=== PATIENT | female | born 1970 | race Caucasian/White ===

== ENCOUNTER 2021-09-22 22:34 | Observation (INO) ==
[2021-09-22] MEDS ORDERED: LABETALOL HCL IV 5 MG/ML 20ML IV PRN (22:54)
--- NOTE | 2021-09-22 23:01 | Emergency Department Note ---
History of Present Illness General Chief complaint: Weakness Stated complaint: Weakness Time Seen by Provider: 09/22/21 22:39 History of Present Illness Maximum Pain Intensity: 6 51-year-old female presents to the ED with a chief complaint of right hand weakness. The patient states that she went to blow her nose this evening around 8 PM and noticed that her right hand became tingly and she had trouble using it. She states that she felt like she could not completely control it. She tried fixing her hair short time later and had difficulty with that at as well. She continues having the symptoms in the ED but it seems to have improved slightly. The patient also incidentally reports that she has had some right lateral leg pain just above the ankle for about a week. She is not sure if it is related to her symptoms tonight. She states that she saw her doctor earlier in the week and had some blood test for gout as well as some x-rays but nothing was found. She is a smoker. She reports history of anxiety but does not take medication for either. Home Medications Medication Instructions Recorded Confirmed Type prednisone 0 mg PO UD 09/22/21 09/22/21 History Allergies Allergy/AdvReac Type Severity Reaction Status Date / Time Penicillins Allergy Severe Rash Verified 09/22/21 23:01 acetaminophen Allergy Intermediate Rash Verified 09/22/21 23:01 [From Darvocet-N 100] propoxyphene Allergy Intermediate Rash Verified 09/22/21 23:01 [From Darvocet-N 100] Past Med/Surg History Medical History (Updated 09/22/21 @ 23:55 by Hua Munoz DO) Anxiety Hypertension Social History Smoking Status: Current every day smoker Tobacco Type: Cigarettes Feels Safe at Home: Yes Review of Systems A total of 10 systems reviewed and were otherwise negative Physical Exam Vital Signs Vital Signs - 24 hr 09/22/21 22:40 09/22/21 23:20 Temperature 36.9 C Temperature Source Oral Pulse Rate 98 H Pulse Rate [Finger] 98 H 77 Respiratory Rate 12 18 Respiratory Effort / Characteristics Non-Labored Respiratory Depth Normal Normal Blood Pressure 183/99 H Blood Pressure [Left Arm] 183/99 H 156/120 H Blood Pressure Mean 127 Blood Pressure Mean [Left Arm] 127 132 Pulse Oximetry 96 98 Oxygen Delivery Method Room Air Room Air Sepsis Recent Fever Within 48 Hours No Sepsis New/Unexplained Change in Mental Status N/A Sepsis Action Taken by Nursing No Action Required CONSTITUTIONAL/VITAL SIGNS: Reviewed / noted above. GENERAL: Non-toxic in appearance. INTEGUMENTARY: Warm, dry, and [place]. HEAD: Normocephalic. EYES: without scleral icterus or trauma. ENT/OROPHARYNX: clear and moist. LYMPHADENOPATHY/NECK: Is supple without lymphadenopathy or meningismus. RESPIRATORY: Clear to auscultation bilaterally. No increased work of breathing. CARDIOVASCULAR: Regular rate and rhythm. GI/ABDOMEN: Soft and nontender. No organomegaly or pulsatile mass. EXTREMITIES: Warm and well perfused. The patient is right-handed but has weak right hand retort condenser attendant strength. BACK: No CVA tenderness. NEUROLOGICAL: Intact without focal deficits. PSYCHIATRIC: normal affect. MUSCULOSKELETAL: Normally developed with good muscle tone. TRIAGE NURSING DOCUMENTATION REVIEWED. Course Administered Medications Discontinued Medications Aspirin (Aspirin Chew 324 Mg) Confirm Administered Dose 324 mg .ROUTE .[employer] ONE Stop: 09/22/21 23:37 Last Admin: 09/22/21 23:38 Dose: 324 mg Documented by: [id number] Ioversol (Optiray 320 125ml) 121 ml IV ONCE ONE Stop: 09/22/21 23:16 Last Admin: 09/22/21 23:15 Dose: 1 ml Documented by: [id number] Medical Decision Making Differential Diagnosis Differential includes acute coronary syndrome, myocardial infarction, CVA, TIA, anemia, infection, pneumonia, UTI, pyelonephritis, poor nutrition, dehydration, electrolyte disturbance,hypoglycemia. Medical Records Attestation: I reviewed the patient's medical records. Home Medications Current Medication List: was personally reviewed by me Laboratory Data Attestation: I reviewed the patient's lab results. Result diagrams: 09/22/21 22:58 09/22/21 22:58 Lab Results 09/22/21 09/22/21 Range/Units 22:58 22:58 WBC 8.47 (4.8-10.8) K/uL RBC 4.13 L (4.2-5.4) M/uL Hgb 13.9 (12.0-16.0) g/dL Hct 41.1 (37-47) % MCV 99.5 (80-100) fL MCH 33.7 (25-34) pg MCHC 33.8 (32-36) g/dL RDW Std Deviation 46.9 H (36.4-46.3) fL RDW Coeff of Doris 13.0 (11.5-14.5) % Plt Count 374 (130-400) K/uL MPV 8.6 (7.4-10.4) fL Immature Gran % (Auto) 0.6 % Neut % (Auto) 70.7 % Lymph % (Auto) 23.8 % Turner % (Auto) 4.8 % Eos % (Auto) 0.0 % Baso % (Auto) 0.1 % Neut # (Auto) 5.98 (1.4-6.5) K/uL Lymph # (Auto) 2.02 (1.2-3.4) K/uL Turner # (Auto) 0.41 (0.11-0.59) K/uL Eos # (Auto) 0.00 (0-0.5) K/uL Baso # (Auto) 0.01 (0-0.2) K/uL Immature Gran # (Auto) 0.05 H (0.00-0.02) K/uL Sodium 144 (136-145) mmol/L Potassium 3.3 L (3.5-5.1) mmol/L Chloride 105 (98-107) mmol/L Carbon Dioxide 29 (21-32) mmol/L Anion Gap 10 (3-11) BUN 17 (6-23) mg/dl Creatinine 0.64 (0.6-1.2) mg/dl Est Cr Clr Drug Dosing 71.1 ml/min Est GFR ( Amer) 118.1 ml/min Est GFR (Non-Af Amer) 101.9 ml/min BUN/Creatinine Ratio 26.6 H (10-20) Glucose 108 H (70-99(Fasting)) mg/dl Calcium 9.3 (8.5-10.1) mg/dl Magnesium 1.9 (1.7-2.4) mg/dl Total Bilirubin 0.2 (0.2-1.0) mg/dl AST 36 (13-39) U/L ALT 49 (7-52) U/L Alkaline Phosphatase 127 H (34-104) U/L Troponin I < 0.03 (0-0.04) ng/ml Total Protein 8.0 (6.0-8.3) gm/dl Albumin 4.6 (3.4-5.0) gm/dl Globulin 3.4 (2.5-4.0) gm/dl Albumin/Globulin Ratio 1.4 (0.9-2) Imaging Data My Impression: Chest x-ray: Per my interpretation is negative for acute disease. No pneumothorax or pneumonia. Radiologist's Impression: CT scan of the head without contrast: No acute bleed or mass CT scan angiogram of the head and neck: No LVO ECG Data Attestation: I personally reviewed and interpreted this ECG as follows: Additional Comments: Twelve-lead EKG: Per my interpretation shows a normal sinus rhythm at a rate of 75. No ST elevation. No PVCs. Normal QTC. MDM Narrative 51-year-old female presents with a chief complaint of right hand weakness that started about 8 PM tonight. She states that it started somewhat suddenly when she was blowing her nose. She reported weakness and numbness and lack of adequate control. She is right-handed. On my exam the patient has right hand retort condenser attendant strength weakness compared to the left. No pronator drift. No other focal neurologic findings. The patient's EKG shows a normal sinus rhythm. CBC and chemistry panel was unremarkable. Troponin is negative. Chest x-ray was negative for acute disease. CT scan of the brain did not show acute bleed. CT angiogram of the head neck did not show LVO. The patient was a stroke alert. She was evaluated by Dr. Pro from [facility]. She recommended aspirin and further evaluation as an inpatient with MRI and other appropriate studies. Impression & Plan Acute CVA (cerebrovascular accident) Discharge Plan Visit Data Chief Complaint: Weakness Stated Complaint: Weakness ED Provider: Hua Munoz Discharge Problem: Acute CVA (cerebrovascular accident) Patient Disposition: Being Evaluated by Hospitalist Forms Stand Alone Forms: [employer] Prescriptions Prescriptions: No Action prednisone 0 mg PO UD RF: 0 Referrals Referrals: PCP,NO [Physician] -
[2021-09-22 23:09] LABS: Basophils # (auto) 0.01 K/uL (0-0.2); Basophils % (auto) 0.1 %; Hematocrit (blood only) 41.1 % (37-47); Hemoglobin 13.9 g/dL (12.0-16.0); Immature Granulocytes # (auto) 0.05 K/uL (0.00-0.02); Immature Granulocytes % (auto) 0.6 %; Lymphocytes # (auto) 2.02 K/uL (1.2-3.4); Lymphocytes % (auto) 23.8 %; Mean Corpuscular Hemoglobin 33.7 pg (25-34); Mean Corpuscular Hgb Conc 33.8 g/dL (32-36); Mean Corpuscular Volume 99.5 fL (80-100); Mean Platelet Volume 8.6 fL (7.4-10.4); Monocytes # (auto) 0.41 K/uL (0.11-0.59); Monocytes % (auto) 4.8 %; Neutrophils # (auto) 5.98 K/uL (1.4-6.5); Neutrophils % (auto) 70.7 %; Platelet Count 374 K/uL (130-400); RDW Standard Deviation 46.9 fL (36.4-46.3); Red Blood Count 4.13 M/uL (4.2-5.4); White Blood Count 8.47 K/uL (4.8-10.8)
[2021-09-22] MEDS ORDERED: OPTIRAY 320 125ml IV ONE (23:15)
[2021-09-22 23:30] LABS: Troponin I < 0.03 ng/ml (0-0.04)
[2021-09-22 23:33] LABS: Alanine Aminotransferase 49 U/L (7-52); Albumin Globulin Ratio 1.4 (0.9-2); Albumin Level 4.6 gm/dl (3.4-5.0); Alkaline Phosphatase 127 U/L (34-104); Anion Gap 10 (3-11); Aspartate Aminotransferase 36 U/L (13-39); BUN Creatinine Ratio 26.6 (10-20); Bilirubin,Total 0.2 mg/dl (0.2-1.0); Blood Urea Nitrogen 17 mg/dl (6-23); Calcium 9.3 mg/dl (8.5-10.1); Carbon Dioxide 29 mmol/L (21-32); Chloride 105 mmol/L (98-107); Creatinine Clr Calc Pharmacy 71.1 ml/min; Est GFR (African American) 118.1 ml/min; Est GFR (Non-African American) 101.9 ml/min; Globulin 3.4 gm/dl (2.5-4.0); Glucose 108 mg/dl (70-99(Fasting)); Magnesium 1.9 mg/dl (1.7-2.4); Potassium 3.3 mmol/L (3.5-5.1); Sodium 144 mmol/L (136-145)
[2021-09-22] MEDS ORDERED: ASPIRIN CHEW 324 MG ONE (23:36)
[2021-09-22] MEDS ORDERED: ASPIRIN CHEW 324 MG PO STA (23:41)
[2021-09-22 23:46] LABS: INR 1.4 (0.9-1.1); Partial Thromboplastin Ratio > 5.3; Prothrombin Time 13.5 Seconds (9.0-12.0)
[2021-09-23 00:07] LABS: Partial Thromboplastin Time > 139.0 Seconds (21.0-31.0)
[2021-09-23] MEDS ORDERED: LORazepam 1 MG/2 ML VIAL IV STA (00:29)
[2021-09-23] MEDS ORDERED: SODIUM CHLORIDE 0.9% 1000ML 1,000 ML IV SCH (02:09)
[2021-09-23] MEDS ORDERED: PHARMACIST DISCHARGE MED REC CONSULT PRN (02:09)
[2021-09-23] MEDS ORDERED: LABETALOL HCL IV 5 MG/ML 20ML IV PRN (02:09)
[2021-09-23] MEDS ORDERED: NITROGLYCERIN SL 0.4 MG/TAB TAB SL PRN (02:09)
--- NOTE | 2021-09-23 02:46 | History and Physical Report ---
DATE OF ADMISSION: 09/23/2021. CHIEF COMPLAINT: Right upper extremity weakness. HISTORY OF PRESENT ILLNESS: This is a 51-year-old female with past medical history significant for prediabetes, hyperlipidemia, hypertension, GERD, ongoing tobacco abuse, smokes half pack to one pack a day, currently not taking any medications, presents with right upper extremity weakness. The patient is also recently having right lower extremity pain in the ankle region for the last 1 week and she saw doctor and was prescribed prednisone, but that is not helping her. Today around 8:00 p.m., she noticed some tingliness and funny feeling in the right hand and she was trying to comb her hair and she was not able to comb, and came to the ER. Currently, she feels still the same, but currently she was able to hold the phone, but she still feels something not right.She was stroke alert. Initial workup was negative and [facility] recommended aspirin and further workup with MRI scan. The blood pressure was running high and she received labetalol. Currently, resting comfortably and hemodynamically stable. Denies any headache, no dizziness, no blurred visions, no earache, no runny nose, no sore throat, no cough, no difficulty swallowing. No chest pain, no shortness of breath, no nausea, no vomiting, no abdominal pain. Normal bowel and bladder movements. Ambulates fine except for recently because of the right lower extremity pain, she is not ambulating much. Hemodynamically stable. ALLERGIES: PENICILLIN AND DARVOCET. PAST MEDICAL HISTORY: As mentioned above. PAST SURGICAL HISTORY: , colonoscopy, endometrial cryoablation, excision of breast lesion, tonsillectomy. MEDICATIONS: Currently taking prednisone. FAMILY HISTORY: Significant for maternal aunt has breast cancer, paternal aunt has breast cancer, maternal cousin has ovarian cancer. SOCIAL HISTORY: . Smokes half pack to 1 pack a day for last 22 years. Alcohol socially. No drug use. REVIEW OF SYSTEMS: As per HPI. Rest of the review of systems is negative. PHYSICAL EXAMINATION: GENERAL: The patient is of moderate build, not in acute distress. VITAL SIGNS: Temperature 36.9, pulse 77, respiratory rate 18, blood pressure when she came in was like 183/99, currently 166/120, oxygen 99% on room air. HEENT: Pupils equal, round and reactive to light. Oral mucosa moist. NECK: No JVD, no neck masses. CARDIOVASCULAR: S1 and S2 heard. Regular rate and rhythm. No murmur, no gallop. RESPIRATORY SYSTEM: Normal AP diameter. No accessory muscle use. No wheezing, no crackles. ABDOMEN: Soft, bowel sounds present, nontender, no distention. CENTRAL NERVOUS SYSTEM: Alert and oriented. Speech is clear. No facial droop. Power is 4/5 in right upper extremity, 5/5 in other extremities. No pronator drift. Sensation is intact. Position sense intact. EXTREMITIES: No edema, no erythema. LABORATORY DATA: WBC 8.4, hemoglobin 13.9, hematocrit 41.1, platelets 374. PT 13.5, INR 1.4, APTT greater than 139. Sodium 144, potassium 3.3, chloride 105, bicarb 29, BUN 17, creatinine 0.64, serum glucose 108, calcium 9.3, magnesium 1.9, total bilirubin 0.2, AST 36, ALT 40, alkaline phosphatase 127. Troponin I less than 0.03. SARS-CoV-2 RNA negative. IMAGING DATA: CT of the neck, no significant stenosis seen. CT of the head, no significant stenosis. CT of the head, in the preliminary report, no acute findings. Chest x-ray, no acute findings. EKG: Normal sinus rhythm with a rate of 75, no acute ST changes seen. ASSESSMENT AND PLAN: This is a 51-year-old female presents with stroke-like symptoms. 1. Stroke-like symptoms: Right upper extremity, started at 8:00 p.m. Still does not feel back to normal. Initial workup is negative. Stroke alert was called. Recommend aspirin and further workup with MRI scan, which is pending. Will also get echocardiogram. Continue aspirin and start on statin. Follow lipid profile. HbA1c levels as per protocol, echo as per protocol, and closely monitor in the tele floor. Neuro consult in a.m. PT/OT. Speech evaluation. 2. Hypertension, hypertensive urgency: Will allow permissive hypertension for now. The patient has history of hypertension, but not taking medications which might be contributing to her symptoms. on IV labetalol p.r.n. May Needs prescription for blood pressure medication at discharge. 3. History of hyperlipidemia: Not taking any medications. Follow the lipid profile. 4. History of prediabetes: Follow HbA1c levels. 5. Tobacco abuse: Needs counseling. 6. Elevated APTT and INR: Etiology unclear. Needs followup. 7. Deep venous thrombosis prophylaxis: Sequential compression devices for now. DISPOSITION: Closely monitor in the tele floor. Level 1 full code. Expect to discharge home and follow with family doctor. Job ID: [id number] T[facility]IL HOSPITALJyoti
[2021-09-23 05:48] LABS: Basophils # (auto) 0.03 K/uL (0-0.2); Basophils % (auto) 0.3 %; Eosinophils # (auto) 0.03 K/uL (0-0.5); Eosinophils % (auto) 0.3 %; Hematocrit (blood only) 35.5 % (37-47); Hemoglobin 11.8 g/dL (12.0-16.0); Immature Granulocytes # (auto) 0.04 K/uL (0.00-0.02); Immature Granulocytes % (auto) 0.4 %; Lymphocytes # (auto) 4.34 K/uL (1.2-3.4); Lymphocytes % (auto) 46.6 %; Mean Corpuscular Hemoglobin 32.9 pg (25-34); Mean Corpuscular Hgb Conc 33.2 g/dL (32-36); Mean Corpuscular Volume 98.9 fL (80-100); Mean Platelet Volume 8.4 fL (7.4-10.4); Monocytes # (auto) 0.54 K/uL (0.11-0.59); Monocytes % (auto) 5.8 %; Neutrophils # (auto) 4.34 K/uL (1.4-6.5); Neutrophils % (auto) 46.6 %; Platelet Count 298 K/uL (130-400); Red Blood Count 3.59 M/uL (4.2-5.4); White Blood Count 9.32 K/uL (4.8-10.8)
[2021-09-23 06:29] LABS: Calcium 8.4 mg/dl (8.5-10.1); Chol HDL Ratio 2.3 (0-5); Est GFR (African American) 128.1 ml/min; Est GFR (Non-African American) 110.5 ml/min; Potassium 3.3 mmol/L (3.5-5.1)
--- NOTE | 2021-09-23 07:02 | Magnetic Resonance Report ---
MR brain wo con HISTORY: 51 years-old Female cva acute strokelike symptoms. History of hypertension. COMPARISON: Head CT, CTA head and neck of same day TECHNIQUE: Multiplanar multisequence MRI of the brain was obtained without the use of IV contrast. FINDINGS: Mines Safety Engineer localizer images demonstrate no gross extracranial abnormality. There is no restricted diffusio n to suggest acute or subacute infarct. Midline structures appear unremarkable. The study is mildly m otion degraded. Partially empty sella. No pathologic blooming artifact on the T2 star series. There i s no acute intracranial hemorrhage, midline shift, abnormal extra-axial collection, hydrocephalus or intracranial mass. Moderate T2/FLAIR hyperintense foci are noted throughout the white matter within t he subcortical, deep and periventricular distributions. The cerebral venous sinuses and major arterial flow voids appear patent. Mastoid air cells and parana pete sinuses are generally clear. Leftward bowing and spurring the nasal septum with bilateral lovely bullosa. The skull, orbits and soft tissues are within normal limits. IMPRESSION: 1. No acute intracranial abnormality. No acute or subacute infarct. 2. Moderate T2/FLAIR hyperintense foci are noted throughout the white matter. These findings are nons pecific, however would favor chronic microvascular ischemic disease. Demyelinating process among othe r etiologies considered less likely. ACT 112: Negative or not required by law. The above report was generated using voice recognition software. It may contain grammatical, syntax o r spelling errors. Electronically signed by: Jason Lorenzo M.D. 09/23/2021 7:01 AM
--- NOTE | 2021-09-23 07:08 | CT Scan Report ---
CT head/brain wo con, CT angio neck with con, CT angio head w con CLINICAL HISTORY: 51 years-old Female with Stroke Like Symptoms. Acute strokelike symptoms TECHNIQUE: Multiple axial CT images of the head were obtained without contrast. CTA head and neck was also obtained following the intravenous ministration of Optiray. 3-D coronal and sagittal MIPS were obtained from the axial data set and were submitted for review. All measurements were obtained accord ing to NASCET criteria. A dose lowering technique was utilized adhering to the principles of ALARA. COMPARISON: Brain MRI of same day FINDINGS: CT HEAD: No acute intracranial hemorrhage, midline shift, intracranial mass, hydrocephalus, territorial ischem ia or abnormal extra-axial collection. Patchy white matter hypodensities. The calvarium is intact. The paranasal sinuses, mastoid air cells, and middle ear cavities are clear . CTA HEAD AND NECK: Mild atherosclerosis of the thoracic aortic arch. There is patency of the innominate and imaged subcl anh arteries. The common and internal carotid arteries are widely patent. The middle and anterior c erebral arteries are patent. The vertebral arteries are codominant and widely patent. Mild narrowing of less than 50% involves the V2 segment left vertebral artery at the level of C5-C6 secondary to unc overtebral spurring. The basilar and posterior cerebral arteries are patent. The cerebral venous sinu ses are patent. There is no abnormal intracranial enhancement. No pneumothorax. Unremarkable soft tissues of the neck. The left vocal fold is located in the medial position. Degenerative changes of the cervical spine. IMPRESSION: 1. No acute intracranial abnormality. 2. Patchy white matter hypodensities are nonspecific however suggest chronic microvascular ischemic d isease. 3. Unremarkable CTA of the head and neck. ACT 112: Negative or not required by law. The above report was generated using voice recognition software. It may contain grammatical, syntax o r spelling errors. Electronically signed by: Jason Lorenzo M.D. 09/23/2021 7:07 AM
--- NOTE | 2021-09-23 07:13 | XRay Report ---
SINGLE VIEW CHEST CLINICAL HISTORY: Strokelike symptoms FINDINGS: An AP, portable, upright chest radiograph is obtained. No prior studies are available for c omparison at the time of dictation. The cardiomediastinal silhouette is unremarkable noting atherosc lerotic calcification of the thoracic aorta. Emphysematous change is suspected. There is no airspace consolidation or large pleural effusion. Scarring/atelectasis is noted at the lung bases. No pneumoth orax is seen. The bony thorax is grossly intact. IMPRESSION: No acute cardiopulmonary abnormality. ACT 112: Negative or not required by law. Electronically signed by: Win Chavez M.D. 09/23/2021 7:12 AM
[2021-09-23] MEDS ORDERED: POTASSIUM CHLORIDE CRTAB 20 MEQ TABCR PO STA (07:22)
[2021-09-23 07:26] LABS: Estimated Average Glucose 131 mg/dl; Hemoglobin A1C 6.2 % (4.5-5.6)
[2021-09-23] MEDS ORDERED: amLODIPine BESYLATE 5 MG TAB PO SCH (09:00)
[2021-09-23] MEDS ORDERED: ATORVASTATIN 40 MG TAB PO SCH (09:00)
[2021-09-23] MEDS ORDERED: ASPIRIN 81 MG ECTAB PO SCH (09:00)
--- NOTE | 2021-09-23 09:42 | Communication Note ---
Date of Service: September 23, 2021 Patient with history of HTN, HLD, depression, here with right wrist numbness and right leg pain. Patient non compliant with her blood pressure medications. Home medication list as follows: Evista 60mg daily Ativan 0.5mg PRN Omeprazole 20mg daily Paxil 20mg daily Lipitor 20mg daily Toprol XL 25mg daily Buspar 10mg BID Losartan 50mg daily HCTZ 12.5mg daily On exam, right wrist numbness most likely carpal tunnel. Right leg pain x 1 week-- reportedly had outpatient ankle X ray which was negative. Will order RLE ultrasound to evaluate for DVT. Neurology Consult pending Likely discharge home later today
[2021-09-23] MEDS ORDERED: LOSARTAN POTASSIUM 50 MG TAB PO SCH (09:45)
--- NOTE | 2021-09-23 11:24 | Ultrasound Report ---
US venous doppler LE RT HISTORY: 51 years-old Female right leg pain, swelling. Evaluate for DVT acute pain and swelling of the right lower leg COMPARISON: None TECHNIQUE: Multiple real-time sonographic images of the right lower extremity deep venous structures were obtained assessing grayscale appearance, color and spectral flow. FINDINGS: Normal flow, compressibility, phasicity and augmentation. IMPRESSION: No sonographic evidence of deep venous thrombosis. ACT 112: Negative or not required by law. The above report was generated using voice recognition software. It may contain grammatical, syntax o r spelling errors. Electronically signed by: Jason Lorenzo M.D. 09/23/2021 11:23 AM
--- NOTE | 2021-09-23 14:05 | Electrocardiogram Report ---
Test Reason : Blood Pressure : / mmHG Vent. Rate : 075 BPM Atrial Rate : 075 BPM P-R Int : 142 ms QRS Dur : 080 ms QT Int : 404 ms P-R-T Axes : 065 042 049 degrees QTc Int : 451 ms Normal sinus rhythm Normal ECG No previous ECGs available Confirmed by Khanh Rousseau ([id number]) on 09/23/2021 2:04:53 PM Referred By: REFERRED SELF Confirmed By:Khanh Rousseau
--- NOTE | 2021-09-23 14:49 | Neurology Consultation ---
Date of Consultation September 23, 2021 Assessment & Plan (1) TIA (transient ischemic attack): 1. MRI brain- no stroke 2. CTA head neck - acute findings 3. aspirin 81 mg daily and plavix 75 mg daily x 21 days then aspirin 81 mg alone for life 4. optimize HTN, HLD, DM LDL <70 5. PT/OT for discharge needs 6. EMG 40 minute RUE as outpatient - has been ordered 7. ZIO as outpatient follow with Neurology 4-6 weeks Daisy Reynolds PAC schedule (2) Non compliance w medication regimen: Supervising Physician Co-Signing Physician Notes I have seen and discussed above patient with Dr Daisy Stock, neurology. pt seen and examined. had sudden r arm weakness, paresthesias after awakening from short nap. pt denies sleeping on the extremity. sx lasted 2 hours. no CN sx, headache or RLE sx other than r ankle pain of several weeks duration. MRI reviewed exam notable for nml CN, weakness in r ext wrist, finger ext, BR with full triceps, no drift dec DARIEL sec to weakness. Symm LE strength, symm reflexes, no ue sensory loss. No tenderness or deformity r upper arm Imp: pt appears to have weakness in r radial distribution . and mri brain nml. rec tx as ischemic event due to pt vascular risk factors, but also perform a ncv in 2 weeks. Query etiology of r ankle pain, rec further chester . VITO Stock MD History of Present Illness Reason for Consultation: right upper extremity weakness Requesting Physician: Matthew Ortiz MD Attending Physician: Matthew Ortiz MD History of Present Illness Josi is a 51 year old female with PMH- prediabetes, HLD, HTN, GERD, ongoing tobacco abuse, smokes half pack to one pack a day, currently not taking any medications, presents with right upper extremity weakness.She also recently having pain in the right lower extremity in the ankle region for the last 1 week and she saw doctor and was prescribed prednisone, but that is not helping her. She noticed some tingling and funny feeling in the right hand and she was trying to comb her hair and she was not able to comb, and presented to [facility] ED 09/23/21 She is now able to hold the phone, but she still feels something not right.She was stroke alert. Initial workup was negative and [facility] recommended aspirin and further workup with MRI scan. The blood pressure was running high and she received labetalol. the symptoms of weakness have resolve but she still has some numbness in her arm. Her ankle is bothering her more at this point it is painful to walk. deneis CP, SOB, abdominal pain, falls or injury to head or neck. Allergies Allergy/AdvReac Type Severity Reaction Status Date / Time Penicillins Allergy Severe Rash Verified 09/22/21 23:01 acetaminophen Allergy Intermediate Rash Verified 09/22/21 23:01 [From Darvocet-N 100] propoxyphene Allergy Intermediate Rash Verified 09/22/21 23:01 [From Darvocet-N 100] Home Medications Medication Instructions Recorded Confirmed Type aspirin 81 mg tablet,delayed 30 mg PO QAM #30 tab 09/23/21 Rx release atorvastatin 40 mg tablet 40 mg PO QAM #30 tab 09/23/21 Rx hydrochlorothiazide 12.5 mg capsule 12.5 mg PO DAILY #30 cap 09/23/21 Rx losartan 50 mg tablet 50 mg PO QAM #30 tab 09/23/21 Rx Patient History Medical History (Updated 09/23/21 @ 16:15 by Daisy Reynolds PA-C) Anxiety Hypertension Social History Smoking Status: Current every day smoker Tobacco Type: Cigarettes Tobacco Cessation Education Requested by Patient: No Hx Alcohol Use: No Hx Substance Use: No Communication Ability: Effective Beliefs That Will Affect Care: None Current Living Situation: Spouse Feels Safe at Home: Yes Safety Concerns: Feels Safe At This Time Assistive Devices: None Review of Systems Review of Systems: All systems reviewed & are unremarkable except as noted in HPI & below Physical Exam Physical Exam: Physical Exam: Constitutional: appearance nourished, healthy and normal Ears, Nose, Mouth and Throat: mucous membranes moist, no injection and skin normal, eyes normal Cardiovascular: normal S-1 and S-2 and regular rate and rhythm Respiratory: clear to auscultation (CTA) and no rales, ronchi or wheeze Musculoskeletal: no peripheral edema and good distal pulses Skin: no stigmata of neurocutaneous disease noted and normal and intact Eyes: extraocular muscles intact (EOMI) and pupils equal, round and reactive to light (PERRL) NEUROLOGIC EXAMINATION: Mental status: Alert and interactive Oriented to full date and location Oriented to person Speech fluent with no evidence of aphasia Cranial Nerves smile eye brow raise symmetric Reflexes: Deep tendon reflexes were symmetrical and graded 2/5. Sensory: intact to light cool touch Coordination: finger to nose , heel to lomax Gait/Stance: Posture sitting up in bed Motor: Negative for pronator drift of out stretched arms with eyes closed. Strength: biceps triceps hand school principal 5/5 bilaterally intrinsics right hand 4/5, hip flex plantar flex ext 5/5 Results & Data ([facility]) Vital Signs (Past 12 Hours) Vital Signs Temp Pulse Resp BP Pulse Ox 09/23/21 12:00 36.9 C 67 18 169/100 H 98 09/23/21 08:00 36.8 C 72 18 155/80 H 95 Laboratory Results Abnormal lab results 09/22/21 09/22/21 09/22/21 Range/Units 22:58 22:58 22:58 RBC 4.13 L (4.2-5.4) M/uL Hgb (12.0-16.0) g/dL Hct (37-47) % RDW Std Deviation 46.9 H (36.4-46.3) fL Lymph # (Auto) (1.2-3.4) K/uL Immature Gran # (Auto) 0.05 H (0.00-0.02) K/uL PT 13.5 H (9.0-12.0) Seconds INR 1.4 H (0.9-1.1) APTT > 139.0 H* (21.0-31.0) Seconds Potassium 3.3 L (3.5-5.1) mmol/L Creatinine (0.6-1.2) mg/dl BUN/Creatinine Ratio 26.6 H (10-20) Glucose 108 H (70-99(Fasting)) mg/dl Hemoglobin A1c (4.5-5.6) % Calcium (8.5-10.1) mg/dl Alkaline Phosphatase 127 H (34-104) U/L 09/23/21 09/23/21 09/23/21 Range/Units 05:27 05:27 05:27 RBC 3.59 L (4.2-5.4) M/uL Hgb 11.8 L (12.0-16.0) g/dL Hct 35.5 L (37-47) % RDW Std Deviation 47.0 H (36.4-46.3) fL Lymph # (Auto) 4.34 H (1.2-3.4) K/uL Immature Gran # (Auto) 0.04 H (0.00-0.02) K/uL PT (9.0-12.0) Seconds INR (0.9-1.1) APTT (21.0-31.0) Seconds Potassium 3.3 L (3.5-5.1) mmol/L Creatinine 0.50 L (0.6-1.2) mg/dl BUN/Creatinine Ratio 34.0 H (10-20) Glucose (70-99(Fasting)) mg/dl Hemoglobin A1c 6.2 H (4.5-5.6) % Calcium 8.4 L (8.5-10.1) mg/dl Alkaline Phosphatase (34-104) U/L Diagnostic Findings CT head -No acute intracranial abnormality. Patchy white matter hypodensities are nonspecific however suggest chronic microvascular ischemic disease. Unremarkable CTA of the head and neck. MRI brain-No acute intracranial abnormality. No acute or subacute infarct. Moderate T2/FLAIR hyperintense foci are noted throughout the white matter. These findings are nonspecific, however would favor chronic microvascular ischemic di sease. Demyelinating process among other etiologies considered less likely. LE doppler-No sonographic evidence of deep venous thrombosis. TTE- EF 55-60% no ASD
[2021-09-23] MEDS ORDERED: STROKE PATIENT DISCHARGE STA (16:39)
--- NOTE | 2021-09-23 16:44 | Discharge Summary ---
Date of Service September 23, 2021 Admission HPI Per Admitting Provider This is a 51-year-old female with past medical history significant for prediabetes, hyperlipidemia, hypertension, GERD, ongoing tobacco abuse, smokes half pack to one pack a day, currently not taking any medications, presents with right upper extremity weakness. The patient is also recently having right lower extremity pain in the ankle region for the last 1 week and she saw doctor and was prescribed prednisone, but that is not helping her. Today around 8:00 p.m., she noticed some tingliness and funny feeling in the right hand and she was trying to comb her hair and she was not able to comb, and came to the ER. Currently, she feels still the same, but currently she was able to hold the phone, but she still feels something not right.She was stroke alert. Initial workup was negative and [facility] recommended aspirin and further workup with MRI scan. The blood pressure was running high and she received labetalol. Currently, resting comfortably and hemodynamically stable. Denies any headache, no dizziness, no blurred visions, no earache, no runny nose, no sore throat, no cough, no difficulty swallowing. No chest pain, no shortness of breath, no nausea, no vomiting, no abdominal pain. Normal bowel and bladder movements. Ambulates fine except for recently because of the right lower extremity pain, she is not ambulating much. Hemodynamically stable. Principal Diagnosis Right hand numbness Right ankle pain Poorly controlled HTN Medication non compliance Discharge Exam Patient appears stated age. No acute distress. Breathing comfortably on room air. Heart sounds are normal. Right ankle with no swelling or deformities but tender to the touch. Discharge Data Allergies Allergy/AdvReac Type Severity Reaction Status Date / Time Penicillins Allergy Severe Rash Verified 09/22/21 23:01 acetaminophen Allergy Intermediate Rash Verified 09/22/21 23:01 [From Darvocet-N 100] propoxyphene Allergy Intermediate Rash Verified 09/22/21 23:01 [From Darvocet-N 100] Consultations 09/22/21 23:59 ED Decision to Admit Stat 09/23/21 08:00 Consult Neurology Routine Ordered Studies 09/22/21 22:54 CT angio head w con Urgent CT angio neck with con Urgent CT head/brain wo con Urgent 09/23/21 00:09 MR brain wo con Stat 09/23/21 11:00 US venous doppler LE RT Routine Hospital Course Right Wrist Numbness Right ankle pain -Admitted for stroke workup which is negative Poorly controlled HTN -BP elevated on admission, patient on 3 antihypertensive medications at home (losartan 50mg daily, HCTZ 12.5mg daily, Toprol XL 25mg daily) but she does not take them consistently -Received losartan 50mg daily here with improvement in BP but still remains above goal -Patient instructed to resume her antihypertensives at home, keep a log book of her BP readings and follow up with her PCP Hyperlipidemia -patient is supposed to be on lipitor 20mg daily but again does not take -LDL 82 Significant risk factors for stroke/TIA -Lipitor increased to 40mg daily -Started aspirin 81mg daily -Needs better blood pressure control, goal BP is normotensive Medication non compliance -nurse coordinator will notify PCP, patient already has a follow up visit scheduled Ideally, patient should remain in the hospital for an additional day for better BP control (BP 189/99 --> 169/100), however, she is anxious to leave and requesting to be discharged. Patient reports having a blood pressure monitor at home and again, important of medication compliance was explained to her. She felt comfortable returning home, taking her medications as prescribed, keeping a log book of her blood pressures and follow up with her PCP on sunday. Total Time Total Time Spent Total Time Spent (In Minutes): 35 Discharge Plan Discharge Items Patient Disposition: Home - Self-Care Reason For Visit: WEAKNESS Discharge Diagnosis: Poorly controlled HTN Right arm numbness Right leg pain Medication non compliance Condition on Discharge: Good Health Concerns: Medication non compliance Poorly controlled HTN Activity: Resume your previous activity Weightbearing: Full weightbearing Non-emergency contact: Primary Care Provider Call non-emergency contact if: you have any medication questions and your symptoms worsen Follow-up/Referrals: Erin Garrido DO [Primary Care Provider] - (Date & Time 09/27/2021 11:10 AM Provider Erin Garrido DO Department Family Medicine [facility] ) Diet: Low Fat and Low Sodium (2gm) Addtl Attending Provider Instructions: You were admitted for right wrist numbness and right leg pain. You were ruled out for a stroke but have significant risk factors that need to be controlled You should continue your home medications as prescribed. Please follow up with your family doctor Pending Studies at Discharge: No Stand-Alone Forms: My [facility], Smoking Cessation Medications and DC Order Prescriptions: New losartan 50 mg Tablet 50 mg PO QAM Qty: 30 RF: 0 atorvastatin 40 mg Tablet 40 mg PO QAM Qty: 30 RF: 0 aspirin 81 mg Tablet,Delayed Release (Dr/Ec) 30 mg PO QAM Qty: 30 RF: 0 hydrochlorothiazide 12.5 mg capsule 12.5 mg PO DAILY Qty: 30 RF: 0 Discontinued prednisone 0 mg PO UD RF: 0 Discharge Orders: Discharge Order (Routine); Ordered 09/23/21 Ordered By: Matthew Morin/Other Patient Handouts: Prediabetes, Low-Salt Choices, Hypertension Stroke Link, Hypertension Dc Admission Data Admit Date/Time: 09/23/21 01:23 Attending Provider: Matthew Ortiz Admit Provider: Omega Solares Primary Care Provider: Erin Garrido Other Providers: Omega Solares ; Daisy Reynolds ; Hossein Kong ; Daisy Stock ; Antonio Malik
== END 2021-09-23 17:46 | disposition home or self-care (01) ==
LOC: ED 22:34 → MERGE 09-23 01:23 → INTOOBSV 09-23 01:23 → EDINP 09-23 01:23